=== PATIENT | female | born 1970 | race Caucasian/White ===

== ENCOUNTER 2021-05-19 09:48 | Outpatient (CLI) | payer OTHER | END 2021-05-19 09:49 | disposition home or self-care (01) | LOC: CSHCT 09:48 | PROVIDERS: ATTEND Student in an Organized Health Care Education/Training Program | DX: R59.1 Generalized enlarged lymph nodes (principal); Z85.3 Personal history of malignant neoplasm of breast; Z98.890 Other specified postprocedural states | CPT/HCPCS: 71260 ==